=== PATIENT | female | born 1985 | race Caucasian/White ===

== ENCOUNTER 2016-12-23 23:15 | Emergency (ER) | payer MEDICAID, OTHER ==
[~2016-12-23] VITALS: Ht 167.6 cm; Wt 90.8 kg
[~2016-12-23 23:15] MED LIST: CYCL-259 PO; DOCU-30 PO; IBUP200T48 PO; NITR100C56 PO; OXYC-302 PO; PNV91TAB3 PO
[2016-12-23] MEDS ORDERED: ALPR0.25 PO (23:43)
[2016-12-23] MEDS ORDERED: HYDR-3240 PO (23:43)
[2016-12-24] MEDS ORDERED: OXYcodone/APAP 7.5/325MG TABLET PO ONE (00:30)
[2016-12-24] MEDS ORDERED: OXYcodone/APAP 5/325MG TABLET ONE (00:42)
[2016-12-24] MEDS ORDERED: OXYcodone/APAP 7.5/325MG TABLET ONE (00:44)
[2016-12-24] MEDS ORDERED: BACITRACIN ZINC OINT 500U/GM, 0.9 GM ONE (00:50)
[2016-12-24 00:59] VITALS: BP 132/77
== END 2016-12-24 01:01 | disposition home or self-care (01) ==
LOC: ED 23:59
DX: S00.83XA Contusion of other part of head, initial encounter (principal); S06.0X0A Concussion without loss of consciousness, initial encounter; F17.200 Nicotine dependence, unspecified, uncomplicated; Y04.0XXA Assault by unarmed brawl or fight, initial encounter
CPT/HCPCS: 70450; 72125; 99284